=== PATIENT | female | born 1985 | race Caucasian/White ===

== ENCOUNTER → 2020-03-28 09:02 | Outpatient (BNVA) | payer BC, SELFPAY | PROVIDERS: PCP Nurse Practitioner Family; Visit Provider Urology | DX: Z76.89 Persons encountering health services in other specified circumstances (principal) ==

== ENCOUNTER → 2020-05-30 09:37 | Outpatient (BNVA) | payer BC, SELFPAY | PROVIDERS: PCP Nurse Practitioner Family; Referring Provider Nurse Practitioner Family; Visit Provider Urology ==

== ENCOUNTER → 2020-08-30 10:26 | Outpatient (BNVA) | payer BC, SELFPAY | PROVIDERS: PCP Nurse Practitioner Family; Visit Provider Physician Assistant ==

== ENCOUNTER → 2020-09-15 08:26 | Outpatient (BNVA) | payer BC, SELFPAY | PROVIDERS: PCP Nurse Practitioner Family; Visit Provider Physician Assistant ==

== ENCOUNTER 2021-07-11 18:59 | Emergency (ER) | payer BC, SELFPAY ==
--- NOTE | 2021-07-11 | ECG_ITS ---
Test Reason : CHEST PAIN Blood Pressure : / mmHG Vent. Rate : 066 BPM Atrial Rate : 066 BPM P-R Int : 164 ms QRS Dur : 086 ms QT Int : 396 ms P-R-T Axes : 032 006 007 degrees QTc Int : 415 ms Normal sinus rhythm Normal ECG When compared with ECG of 16-MAR-2016 19:05, No significant change was found Referred By: Generic ED Physician Electronically Signed By:DANYA BECKETT MD
[2021-07-11 19:35] VITALS: BP 140/89; PULSE 73; RESP 15; TEMP 36.6; O2SAT 98; BMI 40.8
[2021-07-11 19:52] LABS: MANUAL DIFF FLAG NO
[2021-07-11 19:53] LABS: Basophils Percent Auto 0.3 % (0-2); Hematocrit 40.6 % (37.0-47.0); Hemoglobin 13.6 g/dl (12.0-16.0); Imm Gran Abs Auto 0.03 X10*3/uL (0.00-0.03); Imm Gran Pct Auto 0.3 % (0.0-0.4); Lymphocytes Percent Auto 33.2 % (20-40); Mean Corpuscular HGB Conc 33.5 g/dl (31.0-35.0); Mean Corpuscular Hemoglobin 28.8 pg (27.0-33.0); Mean Corpuscular Volume 85.8 fL (80.0-98.0); Mean Platelet Volume 9.1 fL (9.4-12.3); Monocytes Absolute Auto 0.8 X10*3/uL (0.1-1.2); Monocytes Percent Auto 8.5 % (2-11); Neutrophils Absolute Auto 5.2 x10*3/uL (2.0-8.3); Neutrophils Percent Auto 57.7 % (45-73); Platelet Count 332 X10*3/uL (160-400); Red Blood Count 4.73 X10*6/uL (4.20-5.50); Red Cell Distribution Width 12.7 % (11.0-16.0)
[2021-07-11 20:12] LABS: Alanine Aminotransferase 39 U/L (0-31); Albumin Level 4.3 g/dL (3.5-5.0); Alkaline Phosphatase 51 U/L (39-117); Anion Gap 12 (12-20); Aspartate Amino Transferase 25 U/L (5-31); Bilirubin Total 0.4 mg/dL (0.0-1.0); Blood Urea Nitrogen 10 mg/dL (9-16); Calcium 9.2 mg/dL (8.4-10.2); Carbon Dioxide 24 mmol/L (22-29); Chloride 104 mmol/L (96-108); Creatinine Clr Calc Pharmacy 102.1; Estimated Glomerular Filt Rate > 60; Glucose Random 92 mg/dL (60-115); Sodium 136 mmol/L (135-145)
[2021-07-11 20:17] LABS: Troponin-I High Sensitivity < 3.5 ng/L (<3.5-17.0)
--- NOTE | 2021-07-11 22:24 | ED.CHESTPAIN ---
HPI - Chest Pain General Chief Complaint: Chest Pain Stated Complaint: high BP Time Seen by Provider: 07/11/21 22:04 Source: patient Mode of arrival: ambulatory Limitations: no limitations History of Present Illness HPI narrative: Patient comes to emergency room complaining of hypertension. Patient states that sometimes she feels dizzy, occasionally has chest pain. At this time, patient has mild headache, no chest pain, no shortness of breath, no dizziness. On arrival, blood pressure 140/89. Patient states that she takes labetalol 300 mg a day, states that sometimes her heart rate drops to the low 50s, sometimes feels dizzy. Patient is on labetalol because she is trying to become and is to have her blood pressure under control before conceiving. Related Data Home Medications Medication Instructions Recorded Confirmed hydroxyzine HCl 25 mg tablet mg PO 03/28/20 labetalol 100 mg tablet 100 mg PO BID 03/28/20 labetalol 200 mg tablet 200 mg PO BID 03/28/20 08/30/20 phenazopyridine 200 mg tablet 200 mg PO TID PRN 03/28/20 propranolol 40 mg tablet 40 mg PO DAILY 03/28/20 verapamil 120 mg 24 hr 120 mg PO QAM 03/28/20 capsule,extended release cetirizine 10 mg capsule (Zyrtec) 10 mg PO DAILY PRN 08/30/20 08/30/20 ondansetron HCl 8 mg tablet 8 mg PO Q12H 08/30/20 08/30/20 ubrogepant 50 mg tablet (Ubrelvy) mg PO 08/30/20 08/30/20 Previous Rx's Medication Instructions Recorded oxybutynin chloride 5 mg 5 mg PO DAILY 60 Days #60 tab 05/29/20 tablet,extended release 24 hr hydralazine 10 mg tablet 10 mg PO TID 30 Days #90 tab 07/11/21 Allergies Allergy/AdvReac Type Severity Reaction Status Date / Time acetaminophen [From TYLENOL] Allergy Severe ANAPHYLAXIS Verified 07/11/21 22:33 NSAIDS (Non-Steroidal Allergy Severe ANAPHYLAXIS Verified 07/11/21 22:33 Anti-Inflamma [NSAIDS (NON-STEROIDAL ANTI-INFLAMMA] Sulfa (Sulfonamide Allergy Unknown HIVES AND Verified 07/11/21 22:33 Antibiotics) VONITTING [SULFA (SULFONAMIDE ANTIBIOTICS)] Review of Systems Review of Systems: Constitutional : No Weight loss, No Fever, No Chills, No Night Sweats, No Fatigue, No Malaise ENT/Mouth : No Hearing loss, No Ear Pain, No Nasal Congestion, No Sinus Pain, No Hoarseness, No sore throat, No Rhinorrhea, No Swallowing Difficulty Eyes: No Eye Pain, No Swelling, No Redness, No Foreign Body, No Discharge, No Vision Changes Cardiovascular : Intermittent Chest Pain, No SOB, No Dyspnea on Exertion, No Orthopnea, No Edema, No Palpitations Respiratory : No Cough, No Sputum, No Wheezing, No Smoke Exposure, No Dyspnea Gastrointestinal : No Nausea, No Vomiting, No Diarrhea, No Constipation, No abdominal Pain, No Hematochezia, No Melena Genitourinary : no irregular bleeding, No Dysuria, No Urinary Frequency, No Hematuria, No Urinary Incontinence, No Urgency, No Flank Pain, No Urinary Flow Changes, No Hesitancy Musculoskeletal : No joint pain, No Myalgias, No Joint Swelling Skin : No Skin Lesions, No rash Neuro : No Weakness, No Numbness, No Paresthesias, occasional dizziness, No Loss of Consciousness, mild headache Psych : No Anxiety/Panic, No Depression, No SI/HI/AH/VH, No Social Issues, Heme/Lymph: No Bruising, No Bleeding,No Lymphadenopathy Endocrine : No Polyuria, No Polydipsia, No Temperature Intolerance PMFSH Past Medical History Medical History Hiatal hernia HTN (hypertension) Mast cell disease Surgical History History of tonsillectomy and adenoidectomy Hx of cholecystectomy Hx of colonoscopy Hx of endoscopy Hx of wisdom tooth extraction Family History Family History (Updated 08/30/20 @ 10:44 by Anshul Griffin John) Mother Breast cancer Father Skin cancer Hypertension Brother No problems noted. Social History Social History (Updated 08/30/20 @ 10:44 by Anshul Griffin John) Alcohol intake: current Alcohol intake frequency: holidays/special occasions only Advance Directives: No Advance Directives Information Provided: No Physical Exam Vital Signs: Vital Signs: Last Vital Signs Temp 98 F 07/11/21 19:35 Pulse 62 03/23/22 23:07 Resp 18 07/11/21 23:07 BP 140/82 H 07/11/21 23:07 Pulse Ox 98 07/11/21 23:07 BMI result Body Mass Index 40.8 Const: Other: Appearance: Alert. Oriented X3. No acute distress. Eyes: Pupils equal, round and reactive to light. ENT: Pharynx normal. Neck: Normal inspection. Neck supple. No lymph nodes noted. No crepitus CVS: Normal heart rate and rhythm. Pulses normal. Normal S1 and S2 Respiratory: No respiratory distress. Breath sounds normal. No Wheezing. No rales Abdomen: Soft and nontender. No rigidity. No distention. Skin: Skin warm and dry. Normal skin color. Normal skin turgor. Extremities: No lower extremity edema. No Lacerations. No Rash Neuro: Oriented X 3. No motor deficit. No sensory deficit. Moving all extremities. No slurred speech. CN 2 through 12 grossly intact Psych: calm, cooperative, normal affect Course Course Course Narrative: Patient's blood pressure 140/89. At this time, I discussed with the patient that 300 mg of labetalol is on the higher side, causing her to become bradycardic episodes and have dizziness. I discussed with the patient that she can talk to her primary care provider/[facility] Gy[facility] to start hydralazine. Patient states that she would prefer to have the 1st dose today. Patient has autoimmune disease, mast cell, which causes her to have adverse reactions to various medications. Patient states that she she would like to start hydralazine, but is requesting if we can start the 1st dose in the emergency room in case she has an allergic reaction. Patient states that she will try to follow up with her physician tomorrow. I discussed with the patient the hydralazine can cause significant rebound hypertension, her medications need to be taken daily, as scheduled. Patient understands and is agreeable to plan. Patient was given 25 mg of tramadol (has anaphylaxis to acetaminophen and NSAIDs) for headache, and the 1st dose of p.o. hydralazine 10 mg Patient tolerated well the hydralazine, patient is symptomatic, blood pressure 140 systolic MDM - Chest Pain Lab Data Result diagrams: 07/11/21 19:47 07/11/21 19:47 Labs: Lab Results 03/23/22 03/23/22 03/23/22 Range/Units 19:47 19:47 19:47 WBC 9.0 (4.8-10.8) X10*3/uL RBC 4.73 (4.20-5.50) X10*6/uL Hgb 13.6 (12.0-16.0) g/dl Hct 40.6 (37.0-47.0) % MCV 85.8 (80.0-98.0) fL MCH 28.8 (27.0-33.0) pg MCHC 33.5 (31.0-35.0) g/dl RDW 12.7 (11.0-16.0) % Plt Count 332 (160-400) X10*3/uL MPV 9.1 L (9.4-12.3) fL Immature Gran % (Auto) 0.3 (0.0-0.4) % Neut % (Auto) 57.7 (45-73) % Lymph % (Auto) 33.2 (20-40) % Mercer % (Auto) 8.5 (2-11) % Eos % (Auto) 0.0 (0-4) % Baso % (Auto) 0.3 (0-2) % Lymph # (Auto) 3.0 (1.2-4.9) X10*3/uL Mercer # (Auto) 0.8 (0.1-1.2) X10*3/uL Eos # (Auto) 0.0 (0.0-0.4) X10*3/uL Baso # (Auto) 0.0 (0.0-0.2) X10*3/uL Abs Immat Gran (auto) 0.03 (0.00-0.03) X10*3/uL Absolute Neuts (auto) 5.2 (2.0-8.3) x10*3/uL Absolute Nucleated RBC 0.000 (0.0-0.012) X10*3/uL Nucleated RBC % (auto) 0.0 (0.0-0.2) /100WBC Sodium 136 (135-145) mmol/L Potassium 4.0 (3.3-5.1) mmol/L Chloride 104 (96-108) mmol/L Carbon Dioxide 24 (22-29) mmol/L Anion Gap 12 (12-20) BUN 10 (9-16) mg/dL Creatinine 0.84 (0.5-1.4) mg/dL Estim Creat Clear Calc 102.1 Estimated GFR > 60 Random Glucose 92 (60-115) mg/dL Calcium 9.2 (8.4-10.2) mg/dL Total Bilirubin 0.4 (0.0-1.0) mg/dL AST 25 (5-31) U/L ALT 39 H (0-31) U/L Alkaline Phosphatase 51 (39-117) U/L Troponin I High Sens < 3.5 (<3.5-17.0) ng/L Total Protein 7.0 (6.5-8.0) g/dL Albumin 4.3 (3.5-5.0) g/dL Beta HCG, Quant < 2 mIU/mL ECG Data ECG #1: Attestation: I personally reviewed and interpreted this ECG as follows: (Normal sinus rhythm, heart rate 66, no ST segment depression or elevation, nonspecific T-wave inversion in lead 3, QTC 415) Discharge Plan Discharge Clinical Impression: Hypertension Patient Disposition: Home, Self-Care Instructions: Hypertension (ED) Additional Instructions: Please follow-up with your primary care physician tomorrow. If you have any worsening or new symptoms, please return to the emergency room or call 911 Prescriptions: New hydralazine 10 mg tablet 10 mg PO TID 30 Days Qty: 90 0RF No Action oxybutynin chloride 5 mg tablet extended release 24hr 5 mg PO DAILY 60 Days Qty: 60 4RF labetalol 200 mg tablet 200 mg PO BID 0RF labetalol 100 mg tablet 100 mg PO BID 0RF phenazopyridine 200 mg tablet 200 mg PO TID PRN (Reason: pain) 0RF verapamil 120 mg capsule,ext rel. pellets 24 hr 120 mg PO QAM 0RF hydroxyzine HCl 25 mg tablet PO 0RF propranolol 40 mg tablet 40 mg PO DAILY 0RF Ubrelvy 50 mg tablet PO 0RF ondansetron HCl 8 mg tablet 8 mg PO Q12H 0RF Zyrtec 10 mg capsule 10 mg PO DAILY PRN0RF
[2021-07-11 22:32] VITALS: BP 139/84; PULSE 70; RESP 18; O2SAT 99
[2021-07-11] MEDS: hydrALAZINE HCl 10 MG TABLET PO (22:33)
[2021-07-11] MEDS: traMADoL HCL 50 MG TABLET 25 MG PO (22:33)
[2021-07-11 23:00] LABS: HCG Quantitative < 2 mIU/mL
[2021-07-11 23:07] VITALS: BP 140/82; PULSE 62; RESP 18; O2SAT 98
--- NOTE | 2021-07-11 23:27 | PC.NURSE ---
pt a&o, no sob or chest pain. Reviewed medication and discharge instructions. Pt verbalized understanding.
== END 2021-07-11 23:30 | disposition home or self-care (01) ==
PROVIDERS: Emergency Provider Emergency Medicine; PCP Nurse Practitioner Family
DX: R07.89 Other chest pain (principal); R51.9 Headache, unspecified; I10 Essential (primary) hypertension; Z79.899 Other long term (current) drug therapy
CPT/HCPCS: 36415; 80053; 84484; 84702; 85025; 93005; 99283; 99285

== ENCOUNTER → 2022-03-25 08:59 | Outpatient (BNVA) | payer BC, SELFPAY | PROVIDERS: PCP Nurse Practitioner Family; Visit Provider Urology | DX: R10.2 Pelvic and perineal pain (principal); R39.15 Urgency of urination | CPT/HCPCS: 51798 ==